=== PATIENT | female | born 1955 | race Caucasian/White ===

== ENCOUNTER → 2017-02-01 | Outpatient (CLI) | payer OTHER ==
[~2017-02-01] MED LIST: AMBIEN 5 MG TABL5 M1 PO; AUGMENTIN 875875 MG PO; EFFEXOR 5050 MG/1 T1 PO; HYDROCHLOROTHIA25 M1 PO; LEVOTHYROXIN0.025 MG PO; LISINOPRIL10 MG PO; NORCO 5-325 TA1 EACH PO
== END ==
LOC: RAD 16:34
DX: M79.672 Pain in left foot (principal)

== ENCOUNTER 2018-05-07 05:30 | Day surgery (SDC) | payer OTHER ==
[2018-04-29 12:26] LABS: HEMOGLOBIN 13.5 gm/dL (12.0-15.0); MCHC 33.8 g/dL (28.0-37.0); MCV 91.8 fL (80.0-100.0); RBC 4.36 mil/uL (4.20-5.00); RDW 13.5 % (10.5-14.5); WBC 7.6 thou/uL (4.0-11.0)
[2018-04-29 12:27] LABS: URINE BILIRUBIN NEGATIVE (Negative); URINE BLOOD NEGATIVE (Negative); URINE CLARITY CLEAR; URINE COLOR YELLOW; URINE GLUCOSE-RANDOM* NEGATIVE (Negative); URINE KETONES TRACE (Negative); URINE LEUKOCYTES-REFLEX NEGATIVE (Negative); URINE NITRITE-REFLEX NEGATIVE (Negative); URINE PROTEIN (DIPSTICK) NEGATIVE (Negative); URINE SPECIFIC GRAVITY 1.015 (1.005-1.035); URINE UROBILINOGEN 0.2 E.U./dl (0.2-1.0)
[2018-04-29 12:34] LABS: ALBUMIN 4.1 g/dL (3.4-5.0); CALCIUM 9.9 mg/dL (8.5-10.1); CREATININE 1.2 mg/dL (0.6-1.0); POTASSIUM 4.3 mmol/L (3.5-5.1)
[~2018-05-07] VITALS: Ht 165.1 cm; Wt 63.5 kg
--- NOTE | ~2018-05-07 | O ---
[facility] [place] [address] OPERATIVE REPORT Name: SUNNI FIERRO Room #: [facility]#: [id number] Admission: 05/07/18 Attend Phys: Cristobal Coppola MD Discharge: 05/07/18 Date of : 59 Report #: [id number] THIS REPORT FOR: //name// CC: Ronak Coppola DATE OF SERVICE: 05/07/2018 PREOPERATIVE DIAGNOSIS: Left knee medial compartment osteoarthritis. POSTOPERATIVE DIAGNOSIS: Left knee medial compartment osteoarthritis. PROCEDURE: Left medial compartment knee arthroplasty with Navio Robotic assistance. SURGEON: Cristobal Coppola MD. WIRE BASKET MAKER: Kristin Downs PA-C. INDICATIONS FOR WIRE BASKET MAKER: Throughout the case, extensive retraction and manipulation of the knee was required. This was afforded to me by my roofer assistant. ANESTHESIA: LMA with an adductor canal block. IMPLANTS: [employer] size 3 Oxinium Journey medial femoral knee component, a size 2 open tibia and a size 9 polyethylene. TOURNIQUET TIME: 77 minutes. ESTIMATED BLOOD LOSS: 25 mL. COMPLICATIONS: None. SPECIMENS: None. CONDITION UPON LEAVING THE OPERATING ROOM: Stable. INDICATION FOR PROCEDURE: The patient is a 63-year-old female with severe left knee medial compartment osteoarthritis. She failed conservative measures for this and after discussion with her, she elected for left medial knee arthroplasty. DESCRIPTION OF PROCEDURE: Risks, benefits, alternatives, complications were discussed in detail with the patient including but not limited to risk of anesthesia; risk of damage to nerves, arteries, blood vessels; risk for infection, bleeding; risk for continued knee pain and need for reoperation. [facility] [address] [place] [address] OPERATIVE REPORT Name: SUNNI FIERRO Room #: [facility]P [facility]..#: [id number] Admission: 05/07/18 Attend Phys: Cristobal Coppola MD Discharge: 05/07/18 Date of : 59 Report #: [id number] Informed consent was obtained from the patient. Left knee was appropriately marked in the preoperative holding area. IV Ancef was given for preoperative antibiotics. Adductor canal block was placed by Anesthesia. She was brought to the operating room and placed in the supine position on the operating room table. LMA anesthesia was induced without complication. Tourniquet was placed on the left thigh. Left lower extremity was prepped and draped in normal sterile fashion. Timeout was performed, properly identifying the patient and procedure as well as the instrumentation and implants. All in the operating room were in agreement. Left lower extremity was exsanguinated, tourniquet was inflated. Tourniquet time 77 minutes. Standard medial approach to the knee was made with 10 blade through the skin. Dissection was taken down sharply to the fascia and deep flaps were developed medially and laterally. Fresh 10 blade was used to make a medial parapatellar arthrotomy and the knee was inspected. There was severe medial compartment osteoarthritis. Lateral compartment and patellofemoral compartments were well maintained. ACL was intact. It was decided to proceed with medial knee arthroplasty. Reference pins were then placed in the femur and the tibia and then the knee was digitally mapped using the Navio Robotic assistance. Intraoperative plan was made. We sized a size 3 femur and a size 2 tibia with a 9 mm gap. After acceptance of the plan, the femoral resection was made with the Navio latoya, the tibial resection was made with a Navio latoya and the tibia was sized and found to be a size 2. Size 2 tibial trial was then placed and drill holes were made for the pegs. The femoral trial component was placed and this was trialed with a size 8 and then a size 9 polyethylene. The size 9 polyethylene had a millimeter of laxity medially throughout range of motion of the knee and this was felt to be acceptable. This was verified both digitally as well as manually. After this, trial components were removed. Bony ends were thoroughly irrigated with normal saline. A final size 3 Journey Oxinium femoral component and a size 2 tibial component were cemented in place using standard cementation techniques. While the cement cured, a periarticular injection consisting of morphine, ropivacaine, epinephrine and Toradol was placed around the knee joint capsule. After the cement cured, a final size 9 polyethylene was placed. A gram of vancomycin was placed deep in the joint. Fascia was closed with 0 Vicryl. Tourniquet was deflated. Hemostasis was obtained with Bovie cautery. Skin was closed with 2-0 Vicryl, 3-0 Monocryl, Dermabond and a NARENDRA dressing was applied. The patient tolerated this procedure well and went to recovery room under care of Anesthesia postoperatively. <ELECTRONICALLY SIGNED> By: Cristobal Coppola MD 05/20/18 1610 [id number] [id number] Cristobal Coppola MD /ramona
--- NOTE | ~2018-05-07 | EKG ---
[address] [address] ELECTROCARDIOGRAM REPORT Name: SUNNI FIERRO Room #: PRE [facility]#: [id number] Admission: Attend Phys: Cristobal Coppola MD Discharge: Date of : 59 Report #: [id number] THIS REPORT FOR: //name// [facility] Test Date: 2018-04-29 Test Time: 12:22:56 Pat Name: SUNNI FIERRO Department: Room: Gender: F Assurance Assistant: jacki : 1955 Requested By: Cristobal Coppola Order Number: [id number] MD: Jake Rojas Measurements Intervals [place] Rate: 71 P: 0 WY: 112 QRS: 54 QRSD: 78 T: 75 QT: 463 QTc: 504 Interpretive Statements Sinus rhythm Borderline short [place] interval Early transition Nonspecific ST/T wave changes Compared to ECG 01/14/2013 08:58:27 No significant changes Electronically Signed On 04-29-2018 15:06:06 [employer] DESIGN[employer] by Jake Rojas [email or web address] <ELECTRONICALLY SIGNED> By: Jake Rojas MD 04/29/18 1506 21 Jake Rojas MD /RAFI
[~2018-05-07 05:30] MED LIST changes: +IBUPROFEN 600600 M1 PO; +KEFLEX500 M1 PO; +LIPITOR 20 MG T20 M1 PO; +LISINOPRIL20 MG PO; +SENNA-DOCUSATE1 EACH PO; +SYNTHROID100 MC1 PO; +VITAMIN B-12500 MCG IM; +ZOLPIDEM TARTRA10 MG PO
[2018-05-07 07:39] VITALS: BP 112/66
[2018-05-07 12:03] VITALS: BP 105/80
[2018-05-07] MEDS ORDERED: TRI-BUFFERED A325 M1 PO (15:38)
[2018-05-07] MEDS ORDERED: NEURONTIN 300300 M1 PO (15:38)
[2018-05-07 15:49] VITALS: BP 118/67
[2018-05-07 16:12] VITALS: BP 118/67
[2018-05-07 17:07] VITALS: BP 118/67
== END 2018-05-07 17:16 | disposition home or self-care (01) ==
LOC: OR 05:30 → TBA 05:30 → OR 06:42 → 4E 11:53 → OR 15:51 → ENTRNSPT 16:53 → OR 17:16
PROVIDERS: Orthopaedic Surgery
DX: M17.12 Unilateral primary osteoarthritis, left knee (principal); I10 Essential (primary) hypertension; E78.5 Hyperlipidemia, unspecified; E03.9 Hypothyroidism, unspecified; F32.9 Major depressive disorder, single episode, unspecified; Z98.890 Other specified postprocedural states; Z90.49 Acquired absence of other specified parts of digestive tract; Z79.899 Other long term (current) drug therapy
CPT/HCPCS: 10783; 50010; 50101; 50415; 50954; 51130; 51225; 51771; 53078; 53370; 54118; 56527; 56528; 57095; 57103; 57109; 57110; 57111; 57113; 62110; 62900; 64043; 65060; 70005

== ENCOUNTER → 2018-07-22 | Outpatient (CLI) | payer OTHER ==
[~2018-07-22] MED LIST changes: +NEURONTIN 300300 M1 PO; +TRI-BUFFERED A325 M1 PO
== END ==
LOC: RAD 08:26
DX: Z12.31 Encounter for screening mammogram for malignant neoplasm of breast (principal)

== ENCOUNTER → 2019-05-21 | Outpatient (CLI) | payer OTHER | LOC: NUC 08:42 | DX: M17.12 Unilateral primary osteoarthritis, left knee (principal) ==

== ENCOUNTER → 2019-08-05 | Outpatient (CLI) | payer OTHER | LOC: RAD 08:23 | DX: Z12.31 Encounter for screening mammogram for malignant neoplasm of breast (principal) ==

== ENCOUNTER → 2019-12-16 | Outpatient (CLI) | payer OTHER | LOC: RAD 08:01 | PROVIDERS: ATTEND Orthopaedic Surgery | DX: M25.462 Effusion, left knee (principal); M25.561 Pain in right knee ==

== ENCOUNTER → 2020-02-20 | Outpatient (CLI) | payer OTHER ==
[2020-02-20 11:30] LABS: ANION GAP 6 mmol/L (7-16); BUN 19 mg/dL (7-18); CALCIUM 8.8 mg/dL (8.5-10.1); CHLORIDE 102 mmol/L (98-107); CHOLESTEROL 183 mg/dL (<200); CO2 32 mmol/L (21-32); CREATININE 1.2 mg/dL (0.6-1.0); GLUCOSE 86 mg/dL (74-106); HDL CHOLESTEROL 78 mg/dL (>40); LDL CHOLESTEROL 81 mg/dL (<100); POTASSIUM 3.7 mmol/L (3.5-5.1); SGOT 21 U/L (15-37); SGPT 24 U/L (30-65); SODIUM 140 mmol/L (136-145); TC:HDL 2.3 Ratio (Not establshd); TOTAL BILIRUBIN 0.5 mg/dL (0.2-1.0); TOTAL PROTEIN 7.2 g/dL (6.4-8.2); TRIGLYCERIDE 122 mg/dL (<150); VLDL 24 mg/dL (<40)
[2020-02-20 13:35] LABS: ABSOLUTE NEUTROPHILS 2.9 thou/uL (1.4-8.2); BASOPHILS 0.5 % (0.0-2.0); EOSINOPHILS 0.2 % (0.0-3.0); HEMOGLOBIN 13.1 gm/dL (12.0-15.0); LYMPHOCYTES 24.9 % (24.0-44.0); MCH 30.3 pg (26.0-34.0); MCHC 33.6 g/dL (28.0-37.0); MCV 90.4 fL (80.0-100.0); MONOCYTES 9.7 % (1.0-8.0); PLATELET COUNT 256 thou/uL (150-400); POLYS 64.7 % (36.0-66.0); RBC 4.31 mil/uL (4.20-5.00); RDW 14.1 % (10.5-14.5); WBC 4.4 thou/uL (4.0-11.0)
== END ==
LOC: LABMALL 10:35
PROVIDERS: ATTEND Nurse Practitioner
DX: E03.9 Hypothyroidism, unspecified (principal); I10 Essential (primary) hypertension; E78.5 Hyperlipidemia, unspecified

== ENCOUNTER → 2020-08-10 | Outpatient (CLI) | payer OTHER | LOC: LAB 10:00 | PROVIDERS: ATTEND Nurse Practitioner | DX: E03.9 Hypothyroidism, unspecified (principal) ==

== ENCOUNTER → 2021-01-04 | Outpatient (CLI) | payer OTHER | LOC: BC 09:54 | PROVIDERS: ATTEND Obstetrics & Gynecology | DX: Z12.31 Encounter for screening mammogram for malignant neoplasm of breast (principal) ==

== ENCOUNTER → 2021-02-03 | Outpatient (CLI) | payer OTHER | LOC: MRI 09:19 → ULTRA 11:29 | PROVIDERS: ATTEND Orthopaedic Surgery | DX: S83.232A Complex tear of medial meniscus, current injury, left knee, initial encounter (principal); S83.241A Other tear of medial meniscus, current injury, right knee, initial encounter; M25.642 Stiffness of left hand, not elsewhere classified; M17.0 Bilateral primary osteoarthritis of knee; M25.862 Other specified joint disorders, left knee; M25.861 Other specified joint disorders, right knee; M25.641 Stiffness of right hand, not elsewhere classified; X58.XXXA Exposure to other specified factors, initial encounter; Y93.89 Activity, other specified; Y92.89 Other specified places as the place of occurrence of the external cause; Y99.8 Other external cause status ==

== ENCOUNTER 2021-02-08 11:56 | Emergency (ER) | payer OTHER ==
[2021-02-08] MEDS ORDERED: ONDANSETRON HCL4 M2 PO (12:53)
[2021-02-08 13:40] VITALS: BP 143/105
== END 2021-02-08 13:40 | disposition home or self-care (01) ==
LOC: ER 11:56
PROVIDERS: Nurse Practitioner
DX: M25.562 Pain in left knee (principal); Z20.822 Contact with and (suspected) exposure to COVID-19; M25.561 Pain in right knee; I10 Essential (primary) hypertension; F32.9 Major depressive disorder, single episode, unspecified; E03.9 Hypothyroidism, unspecified; E78.5 Hyperlipidemia, unspecified; Z79.2 Long term (current) use of antibiotics; Z90.49 Acquired absence of other specified parts of digestive tract; Z79.899 Other long term (current) drug therapy